=== PATIENT | female | born 1990 | race African-American/Black ===

== ENCOUNTER 2021-05-20 01:40 | Emergency (ER) | payer SELFPAY ==
[~2021-05-20] VITALS: Ht 157.5 cm; Wt 96.0 kg
[2021-05-20 01:51] VITALS: BP 134/75
[2021-05-20 02:45] LABS: BASOPHILS % 0.9 % (0.0-2.0); EOSINOPHILS % 4.3 % (0.0-5.0); HEMATOCRIT. 36.2 % (36.0-48.0); HEMOGLOBIN. 11.7 g/dL (12.0-16.0); LYMPHOCYTES % 40.9 % (20.0-50.0); MEAN CORPUSCULAR HEMOGLOBIN 28.1 pg (28.0-32.0); MEAN CORPUSCULAR VOLUME 87.1 fL (81.0-99.0); MEAN PLATELET VOLUME 8.9 fl (7.4-10.4); MONOCYTES % 10.5 % (2.0-8.0); NEUTROPHILS % 43.4 % (40.0-76.0); PLATELET 352 x1000/uL (130-400); RED BLOOD CELL COUNT 4.15 mill/uL (4.2-5.4); RED CELL DISTRIBUTION WIDTH 17.5 % (11.6-14.6)
[2021-05-20 03:01] LABS: CHLORIDE 103 mEq/L (98-107)
[2021-05-20] MEDS ORDERED: POTASSIUM CHLORIDE 20MEQ TABLET SR PO NR (03:30)
[2021-05-20 03:36] LABS: D-DIMER 1.59 mg/L FEU (<0.50); PROTHROMBIN TIME 10.4 sec (9.6-11.0)
[2021-05-20] MEDS ORDERED: SODIUM CHLORIDE 0.9% 1,000 ML IV ONE (03:45)
[2021-05-20] MEDS: KCL 10MEQ/50ML PREMIX 100 ML IV SCH ×2 (03:45→05:09)
[2021-05-20 05:36] LABS: CLARITY URINE CLOUDY (CLEAR); COLOR URINE DARK YELLOW (YELLOW); KETONES URINE 1+ (NEGATIVE); LEUKOCYTE ESTERASE URINE 1+ (NEGATIVE); NITRITE URINE NEGATIVE (NEGATIVE); OCCULT BLOOD URINE 3+ (NEGATIVE); PROTEIN URINE 1+ (NEGATIVE); SPECIFIC GRAVITY URINE 1.025 (1.005-1.030)
[2021-05-20] MEDS ORDERED: IBUP-2029 MT (06:14)
[2021-05-20] MEDS ORDERED: CEPH500C2 MT (06:14)
== END 2021-05-20 06:23 | disposition home or self-care (01) ==
LOC: ER 01:40
DX: M79.605 Pain in left leg (principal); E87.6 Hypokalemia; I10 Essential (primary) hypertension; Z91.010 Allergy to peanuts; Z91.013 Allergy to seafood
CPT/HCPCS: 36415; 71045; 80053; 81003; 82550; 83735; 84484; 85025; 85379; 85610; 93005; 93971; 96365; 99285; J3480

== ENCOUNTER 2021-06-03 22:30 | Emergency (ER) | payer MEDICAID ==
[~2021-06-03] VITALS: Ht 157.5 cm; Wt 95.0 kg
[~2021-06-03 22:30] MED LIST: CEPH500C2 MT; IBUP-2029 MT
[2021-06-03 22:50] VITALS: BP 140/88
[2021-06-04] MEDS ORDERED: ACET-2708 MT (00:05)
[2021-06-04] MEDS ORDERED: IBUP-2028 MT (00:05)
[2021-06-04] MEDS ORDERED: ACETAMINOPHEN 325MG TABLET PO ONE (00:15)
[2021-06-04] MEDS ORDERED: IBUPROFEN 400MG TABLET PO ONE (00:15)
== END 2021-06-04 00:19 | disposition home or self-care (01) ==
LOC: ER 22:30
DX: M54.2 Cervicalgia (principal); M54.9 Dorsalgia, unspecified; I10 Essential (primary) hypertension; V49.9XXA Car occupant (driver) (passenger) injured in unspecified traffic accident, initial encounter; Y93.89 Activity, other specified; Y92.410 Unspecified street and highway as the place of occurrence of the external cause; Z91.010 Allergy to peanuts; Z91.013 Allergy to seafood
CPT/HCPCS: 99283

== ENCOUNTER 2023-05-25 16:43 | Emergency (ER) | payer MEDICAID ==
[~2023-05-25] VITALS: Ht 162.6 cm; Wt 70.0 kg
[~2023-05-25 16:43] MED LIST changes: +ACET-2708 MT; +IBUP-2028 MT
[2023-05-25 16:53] VITALS: O2SAT 100
[2023-05-25 17:50] LABS: EOSINOPHILS % 3.8 % (0.0-5.0); HEMATOCRIT. 30.4 % (36.0-48.0); HEMOGLOBIN. 9.8 g/dL (12.0-16.0); LYMPHOCYTES % 29.9 % (20.0-50.0); MEAN CORPUSCULAR HEMOGLOBIN 27.3 pg (28.0-32.0); MEAN CORPUSCULAR HGB CONC 32.1 g/dL (31.0-37.0); MEAN CORPUSCULAR VOLUME 85.2 fL (81.0-99.0); MEAN PLATELET VOLUME 9.1 fl (7.4-10.4); MONOCYTES % 6.3 % (2.0-8.0); PLATELET 326 x1000/uL (130-400); RED BLOOD CELL COUNT 3.57 mill/uL (4.2-5.4); RED CELL DISTRIBUTION WIDTH 19.5 % (11.6-14.6); WHITE BLOOD COUNT 5.4 x1000/uL (4.5-11.0)
[2023-05-25 18:12] LABS: ALANINE AMINOTRANSFERASE < 7 IU/L (10-49); ALBUMIN 4.2 g/dL (3.2-4.8); ASPARTATE AMINOTRANSFERASE 14 IU/L (<34); BILIRUBIN TOTAL 0.3 mg/dL (0.1-1.0); CALCIUM 9.3 mg/dL (8.7-10.4); CARBON DIOXIDE 30 mEq/L (21-32); CHLORIDE 103 mEq/L (98-107); CREATININE 0.7 mg/dL (0.6-1.0); GLUCOSE 100 mg/dL (70-105); PROTEIN TOTAL 6.7 g/dL (6.0-8.3); SODIUM 137 mEq/L (136-145); UREA NITROGEN BLOOD 11 mg/dL (9-23)
[2023-05-26] MEDS ORDERED: ACETAMINOPHEN 325MG TABLET PO ONE (02:45)
[2023-05-26 03:43] LABS: CLARITY URINE CLEAR (CLEAR); COLOR URINE DARK YELLOW (YELLOW); GLUCOSE URINE NEGATIVE (NEGATIVE); KETONES URINE 3+ (NEGATIVE); LEUKOCYTE ESTERASE URINE NEGATIVE (NEGATIVE); NITRITE URINE NEGATIVE (NEGATIVE); OCCULT BLOOD URINE 1+ (NEGATIVE); PROTEIN URINE TRACE (NEGATIVE); SPECIFIC GRAVITY URINE 1.035 (1.005-1.030)
[2023-05-26 04:23] LABS: BACTERIA URINE TRACE; MUCUS URINE 1+ /lpf (< = 2+); SQUAMOUS EPITHELIAL CELL URINE FEW /lpf (RARE/1+); WBC URINE 0-2 /hpf (0-2)
[2023-05-26] MEDS ORDERED: POTASSIUM CHLORIDE 20MEQ/PACKET PO ONE (09:30)
[2023-05-26 10:36] VITALS: BP 124/70; PULSE 85; RESP 18; TEMP 98.2
== END 2023-05-26 10:39 | disposition home or self-care (01) ==
LOC: ER 16:43
DX: R55 Syncope and collapse (principal); F41.9 Anxiety disorder, unspecified; J45.909 Unspecified asthma, uncomplicated; F32.A Depression, unspecified; I10 Essential (primary) hypertension
CPT/HCPCS: 36415; 80053; 81003; 81025; 85025; 93005; 99284

== ENCOUNTER 2023-09-27 14:43 | Emergency (ER) | payer MEDICAID ==
[~2023-09-27] VITALS: Ht 157.5 cm; Wt 87.0 kg
[2023-09-27 14:48] VITALS: TEMP 98.8; O2SAT 100
[2023-09-27 16:59] LABS: CLARITY URINE TURBID (CLEAR); COLOR URINE YELLOW (YELLOW); GLUCOSE URINE NEGATIVE (NEGATIVE); KETONES URINE NEGATIVE (NEGATIVE); LEUKOCYTE ESTERASE URINE 3+ (NEGATIVE); NITRITE URINE NEGATIVE (NEGATIVE); OCCULT BLOOD URINE 3+ (NEGATIVE); PH URINE 7.5 (4.5-8.0); PROTEIN URINE 2+ (NEGATIVE); SPECIFIC GRAVITY URINE 1.027 (1.005-1.030)
[2023-09-27 17:02] LABS: UCG QC LOT# 796104; UCG SCREEN NEGATIVE
[2023-09-27 17:13] LABS: BACTERIA URINE 2+; SQUAMOUS EPITHELIAL CELL URINE 1+ /lpf (RARE/1+)
[2023-09-27] MEDS ORDERED: NITR-87 MT (17:13)
[2023-09-27 17:14] LABS: RBC URINE 25-50 /hpf (0-2); WBC URINE TNTC /hpf (0-2)
[2023-09-27] MEDS ORDERED: PHEN-815 MT (17:20)
[2023-09-27] MEDS ORDERED: FLUC150T46 MT (17:20)
[2023-09-27 17:32] VITALS: BP 151/90; PULSE 89; RESP 16
== END 2023-09-27 17:33 | disposition home or self-care (01) ==
LOC: ER 15:43
DX: R30.0 Dysuria (principal); F41.9 Anxiety disorder, unspecified; J45.909 Unspecified asthma, uncomplicated; F32.9 Major depressive disorder, single episode, unspecified; I10 Essential (primary) hypertension; Z79.899 Other long term (current) drug therapy
CPT/HCPCS: 81003; 81025; 87077; 87186; 99283

== ENCOUNTER 2023-11-01 20:20 | Emergency (ER) | payer MEDICAID ==
[~2023-11-01] VITALS: Ht 162.6 cm; Wt 77.0 kg
[~2023-11-01 20:20] MED LIST changes: +FLUC150T46 MT; +NITR-87 MT; +PHEN-815 MT
[2023-11-01] MEDS: PROPOFOL 200MG/20ML VIAL IV ONE (21:30)
[2023-11-01] MEDS: IBUPROFEN 800MG TABLET PO ONE (21:30)
[2023-11-01] MEDS: HYDROCODONE/ACETAMINOPHEN 10/325MG TABLET PO ONE (21:30)
[2023-11-01] MEDS: ONDANSETRON HCL 4MG/2ML INJ IV ONE (21:30)
[2023-11-01 21:33] VITALS: TEMP 98.8; O2SAT 100
[2023-11-01 23:00] VITALS: BP 133/79; PULSE 65; RESP 14
== END 2023-11-01 23:05 | disposition home or self-care (01) ==
LOC: ER 20:20
DX: S43.005A Unspecified dislocation of left shoulder joint, initial encounter (principal); Z79.899 Other long term (current) drug therapy; W18.39XA Other fall on same level, initial encounter; Y93.89 Activity, other specified; Y92.89 Other specified places as the place of occurrence of the external cause; Y99.8 Other external cause status
CPT/HCPCS: 99285; 23650; 96374; 73030; 73060; 99152; J2405; J2704; A4565

== ENCOUNTER 2024-07-12 08:30 | Emergency (ER) | payer MEDICAID ==
[~2024-07-12] VITALS: Ht 157.5 cm; Wt 91.0 kg
[2024-07-12 08:36] VITALS: O2SAT 96
[2024-07-12 08:38] VITALS: BP 151/81; PULSE 74; RESP 16; TEMP 37.2; O2SAT 100
[2024-07-12 09:26] LABS: BASOPHILS % 0.6 % (0.0-2.0); EOSINOPHILS % 4.1 % (0.0-5.0); HEMATOCRIT. 35.5 % (36.0-48.0); HEMOGLOBIN. 11.6 g/dL (12.0-16.0); MEAN CORPUSCULAR HEMOGLOBIN 31.8 pg (28.0-32.0); MEAN CORPUSCULAR HGB CONC 32.6 g/dL (31.0-37.0); MEAN CORPUSCULAR VOLUME 97.8 fL (81.0-99.0); MEAN PLATELET VOLUME 7.9 fl (7.4-10.4); MONOCYTES % 7.7 % (2.0-8.0); NEUTROPHILS % 64.6 % (40.0-76.0); PLATELET 333 x1000/uL (130-400); RED BLOOD CELL COUNT 3.63 mill/uL (4.2-5.4); RED CELL DISTRIBUTION WIDTH 13.4 % (11.6-14.6)
[2024-07-12 09:41] LABS: CHLORIDE 106 mEq/L (98-107); POTASSIUM 4.1 mEq/L (3.5-5.1); SODIUM 139 mEq/L (136-145)
[2024-07-12 09:42] LABS: CALCIUM 8.9 mg/dL (8.7-10.4); CARBON DIOXIDE 29 mEq/L (21-32)
[2024-07-12 09:47] LABS: CREATININE 0.7 mg/dL (0.6-1.0); GLUCOSE 99 mg/dL (70-105); UREA NITROGEN BLOOD 9 mg/dL (9-23)
[2024-07-12 09:49] LABS: ALANINE AMINOTRANSFERASE 11 IU/L (10-49); ALBUMIN 3.8 g/dL (3.2-4.8); ASPARTATE AMINOTRANSFERASE 17 IU/L (<34); BILIRUBIN TOTAL 0.3 mg/dL (0.1-1.0); PROTEIN TOTAL 6.8 g/dL (6.0-8.3)
[2024-07-12] MEDS ORDERED: IBUP-2029 MT (10:16)
[2024-07-12] MEDS ORDERED: BROM118S47 PO (10:16)
[2024-07-12] MEDS ORDERED: ALBU90AE INH (10:16)
[2024-07-12] MEDS ORDERED: BENZ100C86 MT (10:16)
[2024-07-12 10:17] LABS: CLARITY URINE CLEAR (CLEAR); COLOR URINE YELLOW (YELLOW); GLUCOSE URINE NEGATIVE (NEGATIVE); KETONES URINE NEGATIVE (NEGATIVE); LEUKOCYTE ESTERASE URINE NEGATIVE (NEGATIVE); NITRITE URINE NEGATIVE (NEGATIVE); OCCULT BLOOD URINE TRACE (NEGATIVE); PH URINE 7.5 (4.5-8.0); PROTEIN URINE NEGATIVE (NEGATIVE); SPECIFIC GRAVITY URINE 1.016 (1.005-1.030); UROBILINOGEN URINE 0.2 E.U./dL (0.2-1.0)
[2024-07-12 11:12] LABS: MUCUS URINE TRACE /lpf (< = 2+); SQUAMOUS EPITHELIAL CELL URINE RARE /lpf (RARE/1+)
[2024-07-12 11:13] LABS: BACTERIA URINE TRACE; WBC URINE 0-2 /hpf (0-2)
== END 2024-07-12 10:30 | disposition home or self-care (01) ==
LOC: ER 08:30
DX: J06.9 Acute upper respiratory infection, unspecified (principal); Z88.8 Allergy status to other drugs, medicaments and biological substances; Z91.041 Radiographic dye allergy status
CPT/HCPCS: 36415; 71045; 80053; 81003; 81025; 85025; 99284

== ENCOUNTER 2024-11-25 12:30 | Emergency (ER) | payer MEDICAID ==
[~2024-11-25] VITALS: Ht 157.5 cm; Wt 91.0 kg
[~2024-11-25 12:30] MED LIST changes: +ALBU90AE INH; +BENZ100C86 MT; +BROM118S47 PO
[2024-11-25 12:42] VITALS: TEMP 37.1; O2SAT 98
[2024-11-25 12:43] VITALS: O2SAT 98
[2024-11-25] MEDS ORDERED: KETOROLAC 30MG/ML VIAL IV STA (15:55)
[2024-11-25] MEDS ORDERED: SODIUM CHLORIDE 0.9% 1,000 ML IV ONE (16:00)
[2024-11-25] MEDS ORDERED: ONDANSETRON HCL 4MG/2ML INJ IV ONE (16:00)
[2024-11-25] MEDS ORDERED: FAMOTIDINE 20MG/2ML VIAL IV ONE (16:00)
[2024-11-25 16:23] LABS: BASOPHILS % 0.9 % (0.0-2.0); EOSINOPHILS % 10.5 % (0.0-5.0); HEMATOCRIT. 36.9 % (36.0-48.0); HEMOGLOBIN. 12.3 g/dL (12.0-16.0); LYMPHOCYTES % 33.5 % (20.0-50.0); MEAN CORPUSCULAR HEMOGLOBIN 31.7 pg (28.0-32.0); MEAN CORPUSCULAR HGB CONC 33.3 g/dL (31.0-37.0); MEAN CORPUSCULAR VOLUME 95.1 fL (81.0-99.0); MEAN PLATELET VOLUME 8.2 fl (7.4-10.4); MONOCYTES % 6.1 % (2.0-8.0); PLATELET 300 x1000/uL (130-400); RED BLOOD CELL COUNT 3.88 mill/uL (4.2-5.4); RED CELL DISTRIBUTION WIDTH 13.5 % (11.6-14.6); WHITE BLOOD COUNT 4.4 x1000/uL (4.5-11.0)
[2024-11-25 17:19] LABS: CHLORIDE 104 mEq/L (98-107); SODIUM 141 mEq/L (136-145)
[2024-11-25 17:20] LABS: CALCIUM 9.9 mg/dL (8.7-10.4); CARBON DIOXIDE 31 mEq/L (21-32)
[2024-11-25 17:25] LABS: CREATININE 0.8 mg/dL (0.6-1.0); GLUCOSE 84 mg/dL (70-105); UREA NITROGEN BLOOD 10 mg/dL (9-23)
[2024-11-25 17:26] VITALS: BP 125/80; PULSE 125; RESP 18
[2024-11-25] MEDS: FAMOTIDINE 20MG TABLET PO ONE (17:26)
[2024-11-25] MEDS: KETOROLAC 30MG/ML VIAL IM STA (17:26)
[2024-11-25] MEDS: ONDANSETRON HCL 4MG/2ML INJ IM STA (17:26)
[2024-11-25 17:27] LABS: ALANINE AMINOTRANSFERASE 20 IU/L (10-49); ALBUMIN 4.3 g/dL (3.2-4.8); ASPARTATE AMINOTRANSFERASE 20 IU/L (<34); BILIRUBIN DIRECT < 0.1 mg/dL (<=3.0); BILIRUBIN TOTAL 0.3 mg/dL (0.1-1.0); PROTEIN TOTAL 7.3 g/dL (6.0-8.3)
[2024-11-25] MEDS ORDERED: ONDA4TAB50 MT (18:38)
[2024-11-25] MEDS ORDERED: NAPR-681 MT (18:38)
[2024-11-25] MEDS ORDERED: FAMO20TA8 MT (18:38)
[2024-11-25] MEDS ORDERED: BISM-77 MT (18:38)
== END 2024-11-25 18:47 | disposition home or self-care (01) ==
LOC: ER 12:30
DX: K52.9 Noninfective gastroenteritis and colitis, unspecified (principal); R51.9 Headache, unspecified; E86.0 Dehydration; I10 Essential (primary) hypertension; Z88.8 Allergy status to other drugs, medicaments and biological substances; Z79.899 Other long term (current) drug therapy
CPT/HCPCS: 99285; 71045; 80076; 80048; 83690; 85025; 36415; 96372; J1885; J2405; J7030